=== PATIENT | female | born 1950 | race Caucasian/White ===

== ENCOUNTER → 2016-10-28 | Outpatient (CLI) | payer OTHER ==
[~2016-10-28] MED LIST: B COTAB3 PO; LORT5TAB PO; NEXI40CA PO; VITA100017 PO
== END ==
LOC: CLAB 08:14
PROVIDERS: ATTEND Specialist
DX: B18.2 Chronic viral hepatitis C (principal); F41.9 Anxiety disorder, unspecified; B00.9 Herpesviral infection, unspecified; Z79.899 Other long term (current) drug therapy
CPT/HCPCS: 36415; 82140